=== PATIENT | male | born 1945 | race African-American/Black ===

== ENCOUNTER 2020-07-15 10:02 | Outpatient (CLI) | payer MEDICARE ==
[2020-07-16 01:47] LABS: SARS-CoV-2 PCR by NAA Not Detected (NotDetected)
== END 2020-07-15 10:03 | disposition home or self-care (01) ==
LOC: CSHLAB 10:02
PROVIDERS: ATTEND Internal Medicine Gastroenterology
DX: Z20.822 Contact with and (suspected) exposure to COVID-19 (principal); K63.5 Polyp of colon
CPT/HCPCS: 87635; U0003; U0005

== ENCOUNTER → 2020-07-20 | Day surgery (SDC) | payer MEDICARE, BC ==
[2020-07-16 14:27] VITALS: BMI 26.4
[~2020-07-20] MED LIST: Lidocaine 1% MPF 2 ML VIAL ONE; PHENYLEPHRINE-NS 100 MCG/ML 10 ML SYRINGE ONE; PROPOFOL 20 ML ONE; ePHEDrine 50 MG/ML VIAL ONE
== END ==
LOC: CSHSDC 09:20
PROVIDERS: ATTEND Internal Medicine Gastroenterology
PROC: 0DJD8ZZ Inspection of Lower Intestinal Tract, Via Natural or Artificial Opening Endoscopic (ICD-10-PCS; principal; 2020-07-20)
DX: R10.32 Left lower quadrant pain (principal); Z86.010 Personal history of colon polyps; Z80.0 Family history of malignant neoplasm of digestive organs; K64.9 Unspecified hemorrhoids; K63.5 Polyp of colon
CPT/HCPCS: J2704; J3490